=== PATIENT | male | born 1960 | race Hispanic/Latino ===

== ENCOUNTER 2025-03-22 08:29 | Outpatient (RCR) | payer MEDICAID, MEDICARE, SELFPAY ==
[2025-03-22] VITALS (7 sets, daily range): BP systolic 128–168; BP diastolic 75–89
== END 2025-03-30 23:59 | disposition home or self-care (01) ==
LOC: OID 08:29
PROVIDERS: ATTENDING PHYSICIAN Internal Medicine
DX: D64.9 Anemia, unspecified (principal)
CPT/HCPCS: 36415; 36430; 86850; 86900; 86901; 86920; P9016